=== PATIENT | female | born 1955 | race African-American/Black ===

== ENCOUNTER 2016-08-26 05:46 | Emergency (ER) | payer OTHER ==
[~2016-08-26] VITALS: Ht 165.1 cm; Wt 90.7 kg
[2016-08-26] MEDS ORDERED: FLEXERIL PO (05:54)
[2016-08-26] MEDS ORDERED: CYMBALTA60 MG PO (05:55)
[2016-08-26] MEDS ORDERED: PRINIVIL20 M1 PO (05:56)
[2016-08-26] MEDS ORDERED: HYDRALAZINE 2525 MG PO (05:56)
[2016-08-26] MEDS ORDERED: COZAAR 25 MG TA25 MG PO (05:56)
[2016-08-26] MEDS ORDERED: ULORIC40 MG PO (05:57)
[2016-08-26] MEDS ORDERED: NIFEDIPINE ER90 MG PO (05:57)
[2016-08-26] MEDS ORDERED: ALDACTONE25 MG PO (05:57)
[2016-08-26] MEDS ORDERED: NORCO 5-325 TA1 EACH PO (07:11)
[2016-08-26 08:55] VITALS: BP 164/84
== END 2016-08-26 08:57 | disposition home or self-care (01) ==
LOC: ER 05:46
DX: M23.8X1 Other internal derangements of right knee (principal); S59.802A Other specified injuries of left elbow, initial encounter; S89.81XA Other specified injuries of right lower leg, initial encounter; E11.22 Type 2 diabetes mellitus with diabetic chronic kidney disease; I12.9 Hypertensive chronic kidney disease with stage 1 through stage 4 chronic kidney disease, or unspecified chronic kidney disease; N18.3 Chronic kidney disease, stage 3 (moderate); Z88.1 Allergy status to other antibiotic agents; Z88.0 Allergy status to penicillin; Z98.890 Other specified postprocedural states; W01.0XXA Fall on same level from slipping, tripping and stumbling without subsequent striking against object, initial encounter; Y93.89 Activity, other specified; Y92.242 Post office as the place of occurrence of the external cause; Y99.0 Civilian activity done for income or pay